=== PATIENT | male | born 1960 | race Caucasian/White ===

== ENCOUNTER 2017-07-07 06:31 | Day surgery (SDC) | payer MEDICAID ==
[2017-07-07] MEDS ORDERED: MIDAZOLAM 2 MG/2 ML VIAL IVP ONE (07:48)
--- NOTE | 2017-07-07 07:48 | PDANEPAE ---
ANE History of Present Illness Colonoscope ANE Past Medical History - Cardiovascular History Hx Hypertension: Yes Hx Arrhythmias: No Hx Chest Pain: No Hx Coronary Artery / Peripheral Vascular Disease: No Hx CHF / Valvular Disease: No Hx Palpitations: No Cardiovascular History Comment: well controlled - Pulmonary History Hx COPD: No Hx Asthma/Reactive Airway Disease: No Hx Recent Upper Respiratory Infection: No Hx Oxygen in Use at Home: No Hx Sleep Apnea: No Sleep Apnea Screening Result - Last Documented: Positive - Neurologic History Hx Cerebrovascular Accident: No Hx Seizures: No Hx Dementia: No - Endocrine History Hx Diabetes: No Hypothyroid: No Hyperthyroid: No - Renal History Hx Renal Disorders: Yes Renal History Comment: chronic kidney disease -FSG - Liver History Hx Hepatic Disorders: No - Neurological & Psychiatric Hx Hx Neurological and Psychiatric Disorders: Yes Neurological / Psychiatric History Comment: on Lexapro -goes to AA meetings ( alcoholism) - Cancer History Hx Cancer: No - Congenital Disorder History Hx Congenital Disorders: No - GI History GERD: no Hx Gastrointestinal Disorders: No - Other Health History Other Health History: wears glasses - Chronic Pain History Chronic Pain: No - Surgical History Prior Surgeries: wisdom teeth at oral surgeon's office ANE Review of Systems - Exercise capacity METS (RN): 4 METS ANE Patient History - Allergies Allergies/Adverse Reactions: No Known Allergies Allergy (Verified 06/18/17 12:25) - Home Medications Home Medications: Lexapro 02/18/17 [Last Taken 07/06/17 09:00] Ramipril 02/18/17 [Last Taken 07/06/17 09:00] DIAZEPAM 06/18/17 [Last Taken 2 Weeks Ago] Vitamin C 500 mg (*) 06/18/17 [Last Taken 07/06/17 09:00] FOLIC ACID 07/07/17 [Last Taken 07/06/17 09:00] Niacin 07/07/17 [Last Taken 07/06/17 09:00] VITAMIN B COMPLEX 07/07/17 [Last Taken 07/06/17 09:00] Wellbutrin 150mg XL 150 mg PO 07/07/17 [Last Taken 07/07/17 05:30] - NPO status NPO Since - Liquids (Date): 07/06/17 NPO Since - Liquids (Time): 21:00 NPO Since - Solids (Date): 07/06/17 NPO Since - Solids (Time): 08:00 - Anes Hx Anes Hx: no prior problems - Smoking Hx Smoking Status: Never smoked - Alcohol Use Alcohol Use: Sober - Family Anes Hx Family Anes Hx: none Family Hx Anesthesia Complications: none ANE Labs/Vital Signs - Vital Signs Blood Pressure: 138/89 Heart Rate: 86 Respiratory Rate: 16 O2 Sat (%): 95 Height: 182.88 cm Weight: 83.915 kg ANE Physical Exam - Airway Neck exam: FROM Mallampati Score: Class 2 - Pulmonary Pulmonary: no respiratory distress - Cardiovascular Cardiovascular: regular rate and rhythym - ASA Status ASA Status: II ANE Anesthesia Plan Anesthesia Plan: GA with mask
[2017-07-07] MEDS ORDERED: PROPOFOL 200 MG/20 ML VIAL ONE ×3 (07:50→08:33)
--- NOTE | 2017-07-07 08:07 | PDGENHP ---
History & Physical Chief Complaint: Screen colonoscopy Relevant Physical Exam: GEN: NAD. Cardiac: RRR. Lungs: CTA B. Abd: Soft, nt, nd
[2017-07-07] MEDS ORDERED: MIDAZOLAM 2 MG/2 ML VIAL ONE (08:13)
[2017-07-07] MEDS ORDERED: LR 1,000 ML IV ONE (08:15)
[2017-07-07] MEDS ORDERED: NALOXONE HCL 0.4 MG/ML INJ IVP PRN (08:23)
[2017-07-07] MEDS ORDERED: ONDANSETRON 4 MG/2 ML VIAL IVP PRN (08:23)
--- NOTE | 2017-07-07 08:23 | POSTANESTH ---
Post Anesthetic Evaluation Cardiovascular Status: Normal, Stable Respiratory Status: Normal, Stable Level of Consciousness/Mental Status: Can Participate in Eval Pain Control: Adequate, Prn Tx Ordered Nausea/Vomiting Control: Adequate, Prn Tx Ordered Complications Possibly Related to Anesthesia: None Noted
--- NOTE | 2017-07-07 08:38 | POSTOPPROG ---
Post Op Note Date of Operation: 07/07/17 Surgeon: Kelvin Arguelles Pre-op Diagnosis: Screening colonoscopy Post-op Diagnosis: Colon polyps s/p removal Indication: Screen colonoscopy Procedure: Colonoscopy with bx Findings: 2 colon polyps 1-2 mm s/p removal Inf/Abcess present in the surg proc area at time of surgery?: No
--- NOTE | 2017-07-07 09:01 | GPN ---
[f rep st] PROCEDURE NOTE PREPROCEDURE DIAGNOSIS: Screening colonoscopy. POSTPROCEDURE DIAGNOSIS: Screening colonoscopy. PROCEDURE: Colonoscopy with biopsies. ESTIMATED BLOOD LOSS: Minimal. BIOPSIES: Yes. COMPLICATIONS: None. SEDATION: Anesthesia, monitored anesthesia care. INDICATIONS: The patient is a 56-year-old gentleman who is here for screening colonoscopy. The risks and benefits of the procedure were discussed the patient. Consent obtained. Risks include, but not limited to, bleeding, perforation, sedation. The patient is ASA Class 1. DESCRIPTION OF PROCEDURE: The pediatric colonoscope was advanced into the terminal ileum, which appeared normal. The ileocecal valve, appendiceal orifice , cecum, ascending colon, hepatic flexure appears normal. There was a small 2 mm polyp in the transverse colon which was removed using cold biopsy forceps and sent off to pathology. The splenic flexure is normal. The descending colon , sigmoid colon are normal. The rectum showed a small 2 mm polyp which was removed using cold biopsy forceps and sent off to pathology. Retroflexed views in the rectum were normal. IMPRESSION: Two small colon polyps, status post removal. RECOMMENDATIONS: 1. Discharge home with escort. 2. Advance diet as tolerated. 3. Follow up the final pathology results. Results available within 10 days. Repeat colonoscopy based on pathology results. Repeat colonoscopy in 5 years if either polyp is found to be adenomatous. 4. Thank you for allowing me to participate in the care of your patient. Please do not hesitate to call with questions. /[id number]/MODL MTDD
[2017-07-07 09:44] VITALS: TEMP 97.5
[2017-07-07 09:45] VITALS: BP 129/102; O2SAT 98
[2017-07-07 10:06] VITALS: PULSE 79; RESP 16
== END 2017-07-07 10:04 | disposition home or self-care (01) ==
LOC: FSGY 06:31
PROVIDERS: ATTEND Internal Medicine Gastroenterology
DX: Z12.11 Encounter for screening for malignant neoplasm of colon (principal); K62.1 Rectal polyp; K63.5 Polyp of colon
CPT/HCPCS: J2250; J2704

== ENCOUNTER → 2018-04-06 | Outpatient (CLI) | payer MEDICAID | LOC: FIMAGING 10:39 | PROVIDERS: ATTEND Internal Medicine | DX: Z13.820 Encounter for screening for osteoporosis (principal); M85.89 Other specified disorders of bone density and structure, multiple sites; N28.9 Disorder of kidney and ureter, unspecified ==

== ENCOUNTER → 2018-08-24 | Outpatient (CLI) | payer MEDICAID | LOC: CIMAGING 11:59 | PROVIDERS: ATTEND Internal Medicine | DX: M43.16 Spondylolisthesis, lumbar region (principal); M25.551 Pain in right hip | CPT/HCPCS: 72100-PO; 73502-PO ==

== ENCOUNTER → 2018-09-02 | Outpatient (CLI) | payer MEDICAID | LOC: FIMAGING 15:05 | PROVIDERS: ATTEND Internal Medicine | DX: M53.87 Other specified dorsopathies, lumbosacral region (principal); M51.06 Intervertebral disc disorders with myelopathy, lumbar region ==

== ENCOUNTER → 2018-11-19 | Outpatient (CLI) | payer MEDICAID | LOC: FIMAGING 18:40 | PROVIDERS: ATTEND Internal Medicine | DX: M87.351 Other secondary osteonecrosis, right femur (principal); M87.352 Other secondary osteonecrosis, left femur; M16.11 Unilateral primary osteoarthritis, right hip ==

== ENCOUNTER → 2018-12-16 | Outpatient (CLI) | payer MEDICAID ==
[~2018-12-16] MED LIST: DEPO METHYLPREDNISOLONE 40 MG/ML SDV ONE; DEPO METHYLPREDNISOLONE 80 MG/ML SDV ONE; IOPAMIDOL (ISOVUE 370) 100 ML BTL IV ONE; LIDOCAINE 1% 300 MG/30 ML SDV ONE; ROPIVACAINE HCL 150 MG/30 ML INJ ONE
== END ==
LOC: FIMAGING 10:21
PROVIDERS: ATTEND Internal Medicine
PROC: 3E0U3GC Introduction of Other Therapeutic Substance into Joints, Percutaneous Approach (ICD-10-PCS; principal; 2018-12-16)
DX: M25.551 Pain in right hip (principal)
CPT/HCPCS: J1030; J1040; J2795; Q9967

== ENCOUNTER 2019-02-22 05:52 | Observation (INO) | payer MEDICAID ==
--- NOTE | 2019-02-17 15:29 | GHP ---
[f rep st] PREOP HISTORY AND PHYSICAL DATE OF ADMISSION: 02/22/2019 PROBLEM: Right hip avascular necrosis. HISTORY OF PRESENT ILLNESS: The patient is a 58-year-old man admitted for a right hip [place] hip resurfacing arthroplasty. He has had progressive trouble in both hips for about 1 year. His right hip has been quite painful since July of 2018. He has been using Aleve and Advil. Ten years ago, he was diagnosed with severe renal disease. He was treated with large doses of steroids. Up until about 3 years ago, he was also drinking heavily. He has developed AVN in both hips, either from the corticosteroids, or from the alcohol. His renal disease is now in remission. PAST MEDICAL HISTORY: 1. He is treated for hypertension and depression. 2. No history of heart disease, stents, DVT, hepatitis, staph infections, sleep apnea, or bleeding disorders. CURRENT MEDICATIONS: 1. Ramipril 5 mg per day. 2. Wellbutrin 150 mg a day. ALLERGIES: Drug allergies: None. Metal allergies: None. Latex allergy: None. SOCIAL HISTORY: The patient is single. He does not smoke cigarettes or drink alcohol. His sister lives with him and will be assisting him postoperatively. FAMILY HISTORY: Positive for cancer. PHYSICAL EXAMINATION: VITAL: Height 6 feet, weight 187 pounds. HEENT: Eyes: The conjunctivae and sclerae are clear. Pupils are round and reactive. Mouth : Good oral hygiene. No loose teeth. CHEST: Clear. HEART: Regular rhythm. No murmurs. EXTREMITIES: Pertinent findings are limited to his right hip. He has full hip extension and 90 degrees of flexion. External rotation 20 degrees. Internal rotation 0 degrees. Abduction 20 degrees. IMPRESSION: 1. Right hip avascular necrosis, which is very symptomatic. 2. Left hip mild avascular necrosis, which is mildly symptomatic. 3. History of renal disease treated with corticosteroids. 4. History of alcoholism. 5. Treatment for hypertension. 6. Treatment for depression. PLAN: He will undergo a right hip Humera hip resurfacing arthroplasty. The surgery has been described to him, including the risks, complications, expectations, and recovery time. I have talked to him about the risk of femoral neck fracture, progression of the avascular necrosis, infection, and sciatic nerve injury. I have also discussed with him in detail the potential issue of metal ion toxicity, both in the blood and in the soft tissues around the hip joint. I have advised him that avascular necrosis is not an ideal indication for hip resurfacing. He feels very strongly that he wants to go ahead with hip resurfacing, and he understands the consequences and options. All his questions have been answered, and he consents to surgery. /[id number]/MODL MTDD
--- NOTE | 2019-02-22 06:10 | POSTANESTH ---
Post Anesthetic Evaluation Cardiovascular Status: Normal, Stable Respiratory Status: Normal, Stable Level of Consciousness/Mental Status: Can Participate in Eval, Mildly Sleepy, Arousable Pain Control: Adequate, Prn Tx Ordered Nausea/Vomiting Control: Adequate, Prn Tx Ordered Complications Possibly Related to Anesthesia: None Noted Notes: Moving LE bilaterally L > R
--- NOTE | 2019-02-22 06:12 | PDANEPAE ---
ANE History of Present Illness 58 yo male with B hip avascular necrosis for R [place] hip resurfacing. ANE Past Medical History - Cardiovascular History Hx Hypertension: Yes Hx Arrhythmias: No Hx Chest Pain: No Hx Coronary Artery / Peripheral Vascular Disease: No Hx CHF / Valvular Disease: No Hx Palpitations: No Cardiovascular History Comment: well controlled - Pulmonary History Hx COPD: No Hx Asthma/Reactive Airway Disease: No Hx Recent Upper Respiratory Infection: No Hx Oxygen in Use at Home: No Hx Sleep Apnea: No Sleep Apnea Screening Result - Last Documented: Positive - Neurologic History Hx Cerebrovascular Accident: No Hx Seizures: No Hx Dementia: No - Endocrine History Hx Diabetes: No Hypothyroid: No Hyperthyroid: No Obesity: no - Renal History Hx Renal Disorders: Yes Renal History Comment: chronic kidney disease -FSG. TREATED WITH STEROIDS IN REMISSION SINCE 2010 - Liver History Hx Hepatic Disorders: No - Neurological & Psychiatric Hx Hx Neurological and Psychiatric Disorders: Yes Neurological / Psychiatric History Comment: goes to AA meetings (alcoholism) - Cancer History Hx Cancer: No - Congenital Disorder History Hx Congenital Disorders: No - GI History Hx Gastrointestinal Disorders: No - Other Health History Other Health History: wears glasses. BILATERAL HIP AVASCULAR NECROSIS - Chronic Pain History Chronic Pain: Yes (BRANDY HIPS) - Surgical History Prior Surgeries: COLONOSCOPY 05/2017. wisdom teeth at oral surgeon's office ANE Review of Systems Review of Systems: - Exercise capacity METS (RN): 4 METS - Systems Constitutional: Reports: no symptoms Cardiac: Reports: no symptoms Respiratory: Reports: no symptoms Neurological: Reports: anxiety ANE Patient History - Allergies Allergies/Adverse Reactions: No Known Allergies Allergy (Verified 06/18/17 12:25) - Home Medications Home Medications: Ramipril DAILY 02/18/17 [Last Taken 07/06/17 09:00] Wellbutrin 150mg XL 150 mg PO DAILY 07/07/17 [Last Taken 07/07/17 05:30] Herbals/Supplements -Info Only DAILY 02/08/19 [Last Taken Unknown] Tramadol HCl TID PRN 02/08/19 [Last Taken Unknown] - NPO status NPO Status: no food or drink >8 hours - Anes Hx Anes Hx: no prior problems - Smoking Hx Smoking Status: Never smoked - Alcohol Use Alcohol Use: Sober (h/o alcoholism) - Family Anes Hx Family Anes Hx: neg - N/A Family Hx Anesthesia Complications: none ANE Labs/Vital Signs - Vital Signs Vital Signs: reviewed preoperatively; see RN documention for details Height: 180.34 cm Weight: 84.822 kg ANE Physical Exam - Airway Neck exam: FROM Mallampati Score: Class 2 Mouth exam: normal dental/mouth exam - Pulmonary Pulmonary: clear to auscultation - Cardiovascular Cardiovascular: regular rate and rhythym - ASA Status ASA Status: II ANE Anesthesia Plan Anesthesia Plan: spinal
[2019-02-22] MEDS ORDERED: POVIDONE-IODINE 20 ML in SODIUM CL IRRIG SOLUTION 500 ML IRR ONE (06:29)
[2019-02-22] MEDS ORDERED: DEXAMETHASONE 4 MG/ML VIAL IVP ONE (06:29)
[2019-02-22] MEDS ORDERED: GABAPENTIN 300 MG CAP PO ONE (06:29)
[2019-02-22] MEDS ORDERED: ROPIVACAINE 0.2% 80 MG, EPINEPHrine 0.2 MG, KETOROLAC TROMETHAMINE 30 MG in SYRINGE 0 ML IU ONE (06:29)
[2019-02-22] MEDS ORDERED: FAMOTIDINE 20 MG TAB PO ONE (06:29)
[2019-02-22] MEDS ORDERED: ACETAMINOPHEN 325 MG TAB PO ONE (06:29)
[2019-02-22] MEDS ORDERED: ceFAZolin 2 GM/DEXTROSE 100 ML IV ONE (06:29)
[2019-02-22] MEDS ORDERED: TRANEXAMIC ACID 3,000 MG in NS (SYRINGE) 50 ML IRR ONE (06:29)
[2019-02-22] MEDS ORDERED: ONDANSETRON 4 MG/2 ML VIAL IVP ONE (06:29)
[2019-02-22] MEDS ORDERED: TRANEXAMIC ACID 1,000 MG in NS 100 ML IV ONE (06:29)
[2019-02-22] MEDS ORDERED: LR 1,000 ML IV ONE (06:30)
[2019-02-22] MEDS ORDERED: LIDOCAINE 1% 2 ML INJ ID PRN (06:30)
[2019-02-22] MEDS ORDERED: ceFAZolin 1 GM/5 ML SYR ONE (06:55)
--- NOTE | 2019-02-22 06:59 | PDHPUP ---
History & Physical Update H&P update statement: This history and physical update is based on an assessment of the patient which was completed after admission or registration (within 24 hours), but prior to the surgery/procedure. H&P update: H&P reviewed & patient examined
[2019-02-22] MEDS ORDERED: MIDAZOLAM 2 MG/2 ML VIAL ONE (07:04)
[2019-02-22] MEDS ORDERED: MIDAZOLAM 2 MG/2 ML VIAL IVP ONE (07:07)
[2019-02-22] MEDS ORDERED: PROPOFOL/EMULSION 500 MG/50 ML BOTTLE IV ONE ×2 (07:12→08:11)
[2019-02-22] MEDS ORDERED: fentaNYL 100 MCG/2 ML INJ ONE ×2 (07:12→09:48)
[2019-02-22] MEDS ORDERED: LIDOCAINE 2% 5 ML SDV ONE (07:12)
[2019-02-22] MEDS ORDERED: ePHEDrine SULFATE 25 MG/5 ML SYR ONE (07:41)
[2019-02-22] MEDS ORDERED: VASOPRESSIN 20 UNIT/ML VIAL ONE (07:47)
[2019-02-22] MEDS ORDERED: DIAZEPAM 10 MG/2 ML SYR IVP PRN (08:58)
[2019-02-22] MEDS ORDERED: ACETAMINOPHEN 500 MG TAB PO PRN (08:58)
[2019-02-22] MEDS ORDERED: ALBUTEROL 3 ML DEYVIAL IH PRN (08:58)
[2019-02-22] MEDS ORDERED: fentaNYL 100 MCG/2 ML INJ IVP PRN (08:58)
[2019-02-22] MEDS ORDERED: LABETALOL HCL 5 MG/ML 20 ML MDV IVP PRN (08:58)
[2019-02-22] MEDS ORDERED: NALOXONE HCL 0.4 MG/ML INJ IVP PRN (08:58)
[2019-02-22] MEDS ORDERED: LR 500 ML IV PRN (08:58)
[2019-02-22] MEDS ORDERED: oxyCODONE IR 5 MG TAB PO PRN (08:58)
[2019-02-22] MEDS ORDERED: PROMETHAZINE HCL 25 MG/ML INJ IVP PRN ×2 (08:58→09:26)
[2019-02-22] MEDS ORDERED: CYCLOBENZAPRINE 10 MG TAB PO PRN (09:26)
[2019-02-22] MEDS ORDERED: MAGNESIUM HYDROXIDE 30 ML UDCUP PO PRN (09:26)
[2019-02-22] MEDS ORDERED: diphenhydrAMINE 25 MG CAP PO PRN (09:26)
[2019-02-22] MEDS ORDERED: ONDANSETRON DISINTEGRATING 4 MG TAB PO PRN (09:26)
[2019-02-22] MEDS ORDERED: LACTULOSE 20 GM/30 ML UDCUP PO PRN (09:26)
[2019-02-22] MEDS ORDERED: PROMETHAZINE HCL 25 MG SUPPR PR PRN (09:26)
[2019-02-22] MEDS ORDERED: BISACODYL 10 MG SUPP PR PRN (09:26)
[2019-02-22] MEDS ORDERED: NS 500 ML IV PRN (09:26)
[2019-02-22] MEDS ORDERED: TEMAZEPAM 15 MG CAP PO PRN (09:26)
[2019-02-22] MEDS ORDERED: traMADol 50 MG TAB PO PRN (09:26)
[2019-02-22] MEDS ORDERED: METOCLOPRAMIDE 10 MG/2 ML VIAL IVP PRN (09:26)
[2019-02-22] MEDS ORDERED: ONDANSETRON 4 MG/2 ML VIAL IVP PRN (09:26)
[2019-02-22] MEDS ORDERED: DIPHENOXYLATE/ATROPINE LOMOTIL 1 TAB PO PRN (09:26)
[2019-02-22] MEDS ORDERED: POLYETHYLENE GLYCOL 3350 17 GM PKT PO PRN (09:26)
[2019-02-22] MEDS ORDERED: LR 1,000 ML IV SCH (09:30)
[2019-02-22] MEDS ORDERED: PROMETHAZINE HCL 25 MG/ML INJ ONE (09:47)
[2019-02-22] MEDS ORDERED: DIAZEPAM 10 MG/2 ML SYR ONE (09:55)
--- NOTE | 2019-02-22 10:11 | GDS ---
[f rep st] DISCHARGE SUMMARY ADMISSION DIAGNOSIS: Right hip avascular necrosis. DISCHARGE DIAGNOSIS: Right hip avascular necrosis. OPERATION PERFORMED: On 02/22/2019, a right hip Humera hip resurfacing. POSTOPERATIVE COMPLICATIONS: None. CONDITION ON DISCHARGE: Improved. DESCRIPTION OF HOSPITAL COURSE: The patient was admitted to the hospital the morning of surgery. Hi s admission CBC, electrolytes, BUN, and creatinine were normal. The same day, under a combination of spinal anesthesia with sedation, he underwent a right hip [place] hip resurfacing arthroplasty. Postoperatively, he was seen by Physical Therapy and made good progress with ambulation and stairs. He was discharged on the day of surgery. DISPOSITION: The patient discharged to his home. He will go to outpatient physical therapy. He may progress to full weightbearing on the right as tolerated. Use an abduction pillow in bed for 3 week s. Use MARIELA stockings for 1 week. Continue aspirin 325 mg p.o. daily for 21 days. He has prescripti ons for Celebrex, oxycodone, and tramadol for pain control. I will see him back in the office on . If there are any problems, he is to call me at the office. /[id number]/MODL
--- NOTE | 2019-02-22 11:07 | GOP ---
[f rep st] OPERATIVE REPORT DATE OF OPERATION: 02/22/2019 SURGEON: Chandrakant Bonilla MD CLINICAL PROVIDER TRAINER: 1. Giovani Casey MANAGER REIMBURSEMENT. 2. Humberto Thompson, PAC. ANESTHESIA: A combination of Marcaine, spinal and IV sedation. ANESTHESIOLOGIST: Joan Okeefe MD. PREOPERATIVE DIAGNOSIS: Right hip avascular necrosis. POSTOPERATIVE DIAGNOSIS: Right hip avascular necrosis. PROCEDURE PERFORMED: February 22, 2019, a right hip [place] hip resurfacing arthroplasty. FINDINGS: ESTIMATED BLOOD LOSS: About 400 mL. I used a [employer] Humera resurfacing system. The acetabular component was 58 mm in diameter and press-fit. The femoral head was 52 mm and cemented. A long-legged MARIELA stocking and SCD were applied to the operative leg. He wore a stocking and SCD on the opposite leg during the procedure. An abduction pillow was placed between his knees. He was awakened from anesthesia and rolled to the supine position on his [facility]. He was taken to PACU in satisfactory condition. There were no recognized intraoperative complications. The sponge and needle count were correct on 2 occasions. Giovani Casey and Germain Thompson acted as surgical assistants. Their assistance was a medical necessity for safe completion of the procedure. The patient does not have a primary care doctor. DESCRIPTION OF PROCEDURE: The patient was given 2 g of IV Ancef preoperatively within 60 minutes of surgery. He also received 1000 mg of IV tranexamic acid preoperatively. He was placed on the operating room table and given spinal anesthesia with Marcaine by Dr. Okeefe. He was then placed supine and given IV sedation. A Cuevas catheter was not used. He wore a compressive stocking and SCD on the nonoperative leg. He was rolled to the left lateral decubitus position. An axillary roll was used and all pressure points were carefully padded. The position was secured with the pegboard table attachment. I was careful to lock his pelvis in a vertical position. His perineum was isolated with plastic adhesive drapes. The right hip and right lower extremity were prepped with ChloraPrep. They were draped free using sterile sheets, stockinette and Ioban plastic drape. The World Health Organization time-out was performed to verify the correct patient identity and the correct surgical side and site. The Hessel time-out was also performed. I made a 7-inch straight oblique posterolateral hip skin incision. The subcutaneous tissues were sharply divided and hemostasis was obtained using electrocautery. The fascia arlin was identified and split along the axis of its fibers. I curved posteriorly and proximally, and split the fascia of gluteus mar and bluntly split the muscle fibers in line with their orientation. His sciatic nerve was identified and protected throughout the procedure. The Charnley self-retaining retractor was inserted. The external rotators and the posterior capsule were divided as separate layers at the base of the femoral neck, tagged and reflected posteriorly. He had a bloody effusion. The gluteus mar tendon was divided and tagged in order to improve exposure and release tension on the sciatic nerve. The hip was dislocated posteriorly. He had a small amount of unstable, detached, articular cartilage and subchondral bone on the superior lateral aspect of his head from the AVN. I used a sizing gauge to check the diameter of the neck and concluded that 52 mm was the proper head size. I performed a circumferential capsulotomy. I was able to retract the femoral head anteriorly and superiorly, and hold it out of place with appropriate retractors. The remnant of his damaged labrum was excised. The acetabulum was reamed sequentially up to 58 mm. I selected the [place] Monoblock porous-coated acetabular component with an outside diameter of 58 mm. This was firmly impacted and was a good tight fit. I was careful to determine proper inclination and anteversion. I used the transverse acetabular ligament and other acetabular bony landmarks to help me determine proper cup orientation. He had a small posterior inferior osteophyte, which I removed with an osteotome and rongeur. I was careful to leave a good lip of capsule extending beyond the anterior-inferior lip of the metal cup. I then returned to preparation of the femoral head. Using appropriate jigs and guides, I inserted a guide pin into the femoral head and neck. He had a modest amount of deficient bone from AVN at the superolateral margin of the femoral head. I was careful to position my guide pins so there would be no notching of the neck. The large sterile metal goniometer was used to check the neck shaft angle. I reamed over the guide pin and inserted the reaming guide. I then used the cylindrical reamer down to the head and neck junction. This was followed by the flat reamer and the chamfer reamer. The head was sized for 52 mm. There was no damage or impingement on the neck. There was a small area of deficient bone superolaterally. He also had a 10 mm x 12 mm cyst laterally on the superolateral aspect of the head. This was curetted to remove the avascular bone. About 75% of the circumference of the prepared surface of the femoral head had good quality intact bone. I felt that this was satisfactory to proceed with resurfacing. The patient definitely wanted a resurfacing procedure rather than a total hip. I drilled a small hole in the lesser trochanter and inserted a suction cannula to create negative pressure in the medullary canal. Small holes were drilled on the flattened chamfer surfaces of the prepared head for cement anchors. The head was thoroughly cleaned with the pulsating lavage and carefully dried. I used a CarboJet device to blow dry the cancellous surfaces. A single batch of Simplex cement with tobramycin was mixed. At about 50 seconds, I poured the liquid cement into the head component , inserted on the femoral head and impacted it into place. Excess cement was removed before it hardened. The curetted cyst was filled with cement before application of the femoral head component. The acetabulum was irrigated, cleaned, inspected and the hip was reduced. Stability and range of motion were checked. I placed my finger along the anterior aspect of the acetabular component and flexed the hip to 110 degrees. There was no anterior impingement. The suction cannula on the lesser trochanter was removed. The wound was thoroughly irrigated with a dilute Betadine solution. 40 mL of joint anesthetic cocktail were injected into the capsule, deep musculature and subcutaneous tissues along the skin edges. 50 mL of tranexamic acid solution was irrigated into the wound. The sciatic nerve was reinspected and looked unharmed. The external rotators and the posterior hip capsule were repaired in separate layers with #2 FiberWire sutures through drill holes in the greater trochanter. The gluteus mar tendon was repaired with 2 [id number] #2 FiberWire sutures. The fascia arlin was repaired first with 2 interrupted [id number] #2 FiberWire sutures followed by a running #2 barbed Ethicon Stratafix PDO suture. The subcutaneous tissues were closed in layers, beginning with interrupted 2-0 Monocryl sutures followed by a running 0 barbed Ethicon Stratafix Monoderm suture. The skin was closed with a running 3-0 barbed Ethicon Stratafix Monoderm subcuticular suture. The skin edges were reapproximated and sealed with Dermabond glue. The wound was covered with a large sterile Mepilex waterproof dressing. A sacral Mepilex expressing was also applied. /[id number]/MODL MTDD
--- NOTE | 2019-02-22 11:49 | SOAPPROG ---
SOAP Progress Note Assessment/Plan: Assessment: s/p right Humera hip resurfacing for AVN - procedure earlier this morning Films look good Sciatic nerve intact Plan: Begin d/c planning - possibly going home today, he would like to see how he feels after PT Continue pain management - oxycodone, tramadol, celebrex, tylenol ordered Continue PT efforts Continue VTE ppx - aspirin 325 mg once daily, MARIELA montejo, SCDs Subjective: Patient reports feeling better than what he thought he would feel after surgery. He notes a throbbing type of pain at this time. He is considering going home today, but he would like to see how he feels after PT. He denies shortness of breath, chest pain, fever, chills, nausea. Objective: Vital Signs Temp Pulse Resp BP Pulse Ox 36.8 C 84 14 121/64 H 95 02/22/19 11:11 02/22/19 11:11 02/22/19 11:11 02/22/19 11:11 02/22/19 11:11 02/21/19 02/22/19 02/23/19 05:59 05:59 05:59 Intake Total 1030 Output Total 400 Balance 630 Patient resting comfortably in bed, no acute distress. He has 2 family members present in the room. RLE: Surgical wound dressing is clean, dry and intact. Lower leg compartments are soft and nontender. Negative Homans sign. He can actively DF and PF the right foot and right great toe against resistance. Grossly NVI distally. ICD10 Worksheet Patient Problems: Problems Problem Status Onset Avascular necrosis of bone of right hip Acute
[2019-02-22] MEDS: oxyCODONE IR 5 MG TAB PO PRN ×3 (11:50→15:58)
[2019-02-22] MEDS ORDERED: KETOROLAC 15 MG/1 ML SDV IVP SCH (12:00)
[2019-02-22] MEDS ORDERED: ceFAZolin 2 GM/DEXTROSE 100 ML IV SCH (14:00)
[2019-02-22 14:52] VITALS: BP 129/74
[2019-02-22] MEDS ORDERED: ACETAMINOPHEN 325 MG TAB PO SCH (15:26)
--- NOTE | 2019-02-22 15:45 | SOAPPROG ---
SOAP Progress Note Assessment/Plan: Assessment: s/p right Humera hip resurfacing for AVN - procedure earlier this morning Films look good Sciatic nerve intact Plan: D/C planning - going home today, he was able to walk and do stairs in PT. He was given clearance by PT. He feels more comfortable and confident to go home. He will be staying with his sister. Continue pain management - oxycodone, tramadol, celebrex, tylenol ordered Continue PT efforts Continue VTE ppx - aspirin 325 mg once daily, MARIELA montejo, SCDs Subjective: Patient reports he is feeling better and more confident to go home after doing PT. He denies pain in the right hip joint, most of the pain is in the right buttock. He denies having pain, numbness or tingling radiating down the right lower extremity. He denies SOB, CP, fever, chills, nausea, vomiting. Objective: Vital Signs Temp Pulse Resp BP Pulse Ox 36.9 C 91 12 129/74 H 93 02/22/19 14:12 02/22/19 14:12 02/22/19 14:12 02/22/19 14:12 02/22/19 14:12 02/21/19 02/22/19 02/23/19 05:59 05:59 05:59 Intake Total 1030 Output Total 400 Balance 630 He is resting comfortably in bed, no acute distress. His aunt and uncle are present in the room. RLE: Wound dressing is clean, dry, intact. Lower leg compartments are soft and nontender. He can DF and PF foot and great toe. Grossly NVI distally. ICD10 Worksheet Patient Problems: Problems Problem Status Onset Avascular necrosis of bone of right hip Acute
[2019-02-22] MEDS ORDERED: SENNOSIDES/DOCUSATE SODIUM TAB PO SCH (21:00)
[2019-02-22] MEDS ORDERED: ASPIRIN 325 MG TAB PO SCH (21:00)
[2019-02-22] MEDS ORDERED: FAMOTIDINE 20 MG TAB PO SCH (21:00)
[2019-02-23] MEDS ORDERED: FERROUS SULFATE 325 MG TAB PO SCH (08:00)
[2019-02-23] MEDS ORDERED: RAMIPRIL 5 MG CAP PO SCH (09:00)
[2019-02-23] MEDS ORDERED: buPROPion XL 150 MG TAB PO SCH (09:00)
== END 2019-02-22 17:44 | disposition home or self-care (01) ==
LOC: F3N 05:52 → EDSTATUS 03-09 08:15
PROVIDERS: ADMIT Orthopaedic Surgery; ATTEND Orthopaedic Surgery
PROC: 0SUA0BZ Supplement Right Hip Joint, Acetabular Surface with Resurfacing Device, Open Approach (ICD-10-PCS; principal; 2019-02-22 07:15)
DX: M87.351 Other secondary osteonecrosis, right femur (principal); I10 Essential (primary) hypertension
CPT/HCPCS: 27130; 72170; 97116; 97161; 97166; 97530; 97535; G0378; C1713; J0171; J0690; J1100; J1885; J2250; J2405; J2550; J2704; J2795; J3010; J3360